=== PATIENT | male | born 1995 | race Caucasian/White ===

== ENCOUNTER 2018-10-10 15:47 | Emergency (ER) | payer BC ==
[2018-10-10] MEDS ORDERED: KETOROLAC TROMETHAMINE INJ/PF 30 MG/1 ML SDV IV ONE (16:38)
--- NOTE | 2018-10-10 16:40 | ER Document Report ---
ED Medical Screen (RME) - General Chief Complaint: Abdominal Pain Stated Complaint: ABDOMINAL PAIN Time Seen by Provider: 10/10/18 16:38 Mode of Arrival: Ambulatory Information source: Patient Notes: 23-year-old male presented to ED for complaint of generalized abdominal pain since 1:00. He states she has not had any nausea vomiting or diarrhea. He states he did have a bowel movement this morning he said that the pain is pretty significant and generalized to the whole abdomen. He has active bowel sounds abdomen is soft it is tender to touch to the generalized area. He states the only medical history as is a fractured ankle and foot foot and he drinks beer 3 times a week. 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 Patient is alert oriented respirations regular and unlabored speaking in full sentences. I have greeted and performed a rapid initial assessment of this patient. A comprehensive ED assessment and evaluation of the patient, analysis of test results and completion of medical decision making process will be conducted by an additional ED providers. Dictation of this chart was performed using voice recognition software; therefo re, there may be some unintended grammatical errors. - Related Data Allergies/Adverse Reactions: shellfish derived Allergy (Verified 10/10/18 15:49) Past Medical History - Social History Chew tobacco use (# tins/day): No Frequency of alcohol use: 2 x week Drug Abuse: None Renal/ Medical History: Denies: Hx Peritoneal Dialysis Past Surgical History: Reports: Hx Oral Surgery Physical Exam - Vital signs Vitals: Temp Pulse Resp BP Pulse Ox 98.2 F 96 16 134/76 H 99 10/10/18 15:52 10/10/18 15:52 10/10/18 15:52 10/10/18 15:52 10/10/18 15:52 Course - Vital Signs Vital signs: Temp Pulse Resp BP Pulse Ox 98.2 F 96 16 134/76 H 99 10/10/18 15:52 10/10/18 15:52 10/10/18 15:52 10/10/18 15:52 10/10/18 15:52
[2018-10-10 17:19] LABS: ABSOLUTE EOSINOPHILS # (AUTO) 0.1 10^3/uL (0.0-0.6); ABSOLUTE LYMPHOCYTES (AUTO) 1.7 10^3/uL (0.5-4.7); ABSOLUTE MONOCYTES (AUTO) 0.5 10^3/uL (0.1-1.4); ABSOLUTE NEUT (AUTO) 5.5 10^3/uL (1.7-8.2); BASOPHILS % (AUTO) 0.4 % (0-2); EOSINOPHILS % (AUTO) 1.3 % (0-6); HEMATOCRIT 43.1 % (37.9-51.0); HEMOGLOBIN 14.6 g/dL (13.5-17.0); LYMPHOCYTES % (AUTO) 21.6 % (13-45); MEAN CORPUSCULAR HEMOGLOBIN 30.2 pg (27.0-33.4); MEAN CORPUSCULAR HGB CONC 33.9 g/dL (32.0-36.0); MEAN CORPUSCULAR VOLUME 89 fl (80-97); MONOCYTES % (AUTO) 6.1 % (3-13); PLATELET COUNT 223 10^3/uL (150-450); RED BLOOD COUNT 4.84 10^6/uL (4.35-5.55); RED CELL DISTRIBUTION WIDTH 13.2 % (11.5-14.0); SEGMENTED NEUTROPHILS % (AUTO) 70.6 % (42-78); TOTAL CELLS COUNTED % (AUTO) 100 %; WHITE BLOOD COUNT 7.7 10^3/uL (4.0-10.5)
[2018-10-10 17:38] LABS: ALANINE AMINOTRANSFERASE 36 U/L (21-72); ALBUMIN 4.9 g/dL (3.5-5.0); ALKALINE PHOSPHATASE 69 U/L (38-126); ANION GAP 5 (5-19); ASPARTATE AMINO TRANSFERASE 28 U/L (17-59); BILIRUBIN,DIRECT 0.2 mg/dL (0.0-0.4); BILIRUBIN,TOTAL 0.7 mg/dL (0.2-1.3); BLOOD UREA NITROGEN 13 mg/dL (7-20); CALCIUM 9.9 mg/dL (8.4-10.2); CARBON DIOXIDE 29 mmol/L (22-30); CHLORIDE 103 mmol/L (98-107); GLUCOSE 83 mg/dL (75-110); LIPASE 31.5 U/L (23-300); POTASSIUM 4.6 mmol/L (3.6-5.0); SODIUM 137.1 mmol/L (137-145); TOTAL PROTEIN 7.8 g/dL (6.3-8.2)
--- NOTE | 2018-10-10 20:03 | ER Document Report ---
ED General - General Chief Complaint: Abdominal Pain Stated Complaint: ABDOMINAL PAIN Time Seen by Provider: 10/10/18 16:38 Mode of Arrival: Ambulatory - [facility] Notes: Patient is a 23-year-old male that presents to the emergency department for chief complaint of abdominal pain. Patient reports acute onset of diffuse abdominal pain this afternoon. He states he was at work but was not doing anything overly exertional. He has had meals regularly today and states he has been drinking Gatorade and water. Patient reports a sharp crampy pain from his sternum to his pubic symphysis. The pain was symmetric bilaterally. He states it was constant and has gradually improved since onset. He did receive Toradol in triage which he states gave him relief. He reports no associated nausea, vomiting or diarrhea. He had a normal bowel movement today and denies history of constipation. Patient denies history of abdominal surgery. He has not had any associated fevers or chills. He did not take any medication prior to arrival for his symptoms. He denies any associated chest pain, shortness of breath, numbness or weakness. Past Medical History: Negative Past Surgical History: Negative Social History: Occasional chew tobacco, occasional alcohol, denies drug use Family History: Reviewed and noncontributory for presenting illness Allergies: Reviewed, see documented allergy list. REVIEW OF SYSTEMS: CONSTITUTIONAL : No fever No chills No diaphoresis No recent illness EENT: No vision changes No congestion No sore throat CARDIOVASCULAR: No chest pain No palpitations RESPIRATORY: No shortness of breath No cough No difficulty breathing GASTROINTESTINAL: abdominal pain No nausea No vomiting No diarrhea GENITOURINARY: No dysuria No hematuria No difficulty urinating MUSCULOSKELETAL: No back pain No leg pain No arm pain SKIN: No rashes No lesions LYMPHATIC: No swollen, enlarged glands. NEUROLOGICAL: No lightheadedness No headache No weakness No paresthesias PSYCHIATRIC: No anxiety No depression PHYSICAL EXAMINATION: Vital signs reviewed, nursing noted reviewed. GENERAL: Well-appearing, well-nourished and in no acute distress. HEAD: Atraumatic, normocephalic. EYES: Eyes appear normal, extraocular movements intact, sclera anicteric, conjunctiva are normal. ENT: nares patent, oropharynx clear without exudates. Moist mucous membranes. NECK: Normal range of motion, supple without lymphadenopathy LUNGS: Breath sounds clear to auscultation bilaterally and equal. No wheezes rales or rhonchi. HEART: Regular rate and rhythm without murmurs ABDOMEN: Soft, mild diffuse abdominal tenderness worse in the epigastric region, normoactive bowel sounds. No rebound, guarding, or rigidity. No masses appreciated. EXTREMITIES: Nontender, good range of motion, no pitting or edema. NEUROLOGICAL: No focal neurological deficits. Moves all extremities spontaneously Motor and sensory grossly intact on exam. PSYCH: Normal mood, normal affect. SKIN: Warm, Dry, normal turgor, no rashes or lesions noted on exposed skin - Related Data Allergies/Adverse Reactions: shellfish derived Allergy (Verified 10/10/18 15:49) Past Medical History - General Information source: Patient - Social History Smoking Status: Never Smoker Chew tobacco use (# tins/day): No Frequency of alcohol use: 2 x week Drug Abuse: None Family History: Reviewed & Not Pertinent Patient has suicidal ideation: No Patient has homicidal ideation: No Renal/ Medical History: Denies: Hx Peritoneal Dialysis Past Surgical History: Reports: Hx Oral Surgery Physical Exam - Vital signs Vitals: Temp Pulse Resp BP Pulse Ox 98.2 F 96 16 134/76 H 99 10/10/18 15:52 10/10/18 15:52 10/10/18 15:52 10/10/18 15:52 10/10/18 15:52 Course - Re-evaluation Re-evalutation: 10/10/18 20:02 Vitals reviewed. Nursing notes reviewed. Patient's lab work is unremarkable. He is not acutely anemic or having any symptoms of GI bleed. His kidney function is normal. He has no severe electrolyte derangements. Patient has mild diffuse abdominal tenderness and abdominal series will be obtained to evaluate for constipation or free air. 10/10/18 21:24 Abdominal series shows no significant findings. Patient has continued to improve while in the emergency room. His abdominal exam is non-peritoneal. At this point I do not feel CT imaging is indicated given his normal vital signs, unremarkable blood work and benign abdominal exam. Patient was encouraged to have reevaluation in 24 hours if his abdominal pain is not resolved. He was counseled on return precautions and verbalized understanding. Patient is stable for discharge. Laboratory 10/10/18 10/10/18 10/10/18 16:57 16:57 19:53 WBC 7.7 RBC 4.84 Hgb 14.6 Hct 43.1 MCV 89 MCH 30.2 MCHC 33.9 RDW 13.2 Plt Count 223 Seg Neutrophils % 70.6 Lymphocytes % 21.6 Monocytes % 6.1 Eosinophils % 1.3 Basophils % 0.4 Absolute Neutrophils 5.5 Absolute Lymphocytes 1.7 Absolute Monocytes 0.5 Absolute Eosinophils 0.1 Absolute Basophils 0.0 Sodium 137.1 Potassium 4.6 Chloride 103 Carbon Dioxide 29 Anion Gap 5 BUN 13 Creatinine 1.11 Est GFR ( Amer) > 60 Est GFR (Non-Af Amer) > 60 Glucose 83 Calcium 9.9 Total Bilirubin 0.7 Direct Bilirubin 0.2 Neonat Total Bilirubin Not Reportable Neonat Direct Bilirubin Not Reportable Neonat Indirect Bili Not Reportable AST 28 ALT 36 Alkaline Phosphatase 69 Total Protein 7.8 Albumin 4.9 Lipase 31.5 Urine Color YELLOW Urine Appearance CLEAR Urine pH 8.0 Ur Specific [place] 1.012 Urine Protein NEGATIVE Urine Glucose (UA) NEGATIVE Urine Ketones NEGATIVE Urine Blood NEGATIVE Urine Nitrite NEGATIVE Urine Bilirubin NEGATIVE Urine Urobilinogen NEGATIVE Ur Leukocyte Esterase NEGATIVE Urine WBC (Auto) 1 Urine RBC (Auto) 0 Squamous Epi Cells Auto <1 Urine Mucus (Auto) RARE Urine Ascorbic Acid NEGATIVE Acute Abdomen Series 10/10/18 19:59 IMPRESSION: No acute plain film abnormality is identified. - Vital Signs Vital signs: Temp Pulse Resp BP Pulse Ox 98.2 F 96 16 134/76 H 99 10/10/18 15:52 10/10/18 15:52 10/10/18 15:52 10/10/18 15:52 10/10/18 15:52 - Laboratory Result Diagrams: 10/10/18 16:57 10/10/18 16:57 Discharge - Discharge Clinical Impression: Abdominal pain Qualifiers: Abdominal location: generalized Qualified Code(s): R10.84 - Generalized abdominal pain Condition: Stable Disposition: HOME, SELF-CARE Instructions: Abdominal Pain ([facility]) Additional Instructions: Please return to the emergency department if you have any worsening, or concern of your symptoms. Please return to the emergency department if you develop chest pain, difficulty breathing, severe abdominal pain, or ongoing vomiting. Please follow-up with your primary care physician in 1-2 days and any other recommended physicians. If prescribed, take all medications as directed. If you have any questions or concerns do not hesitate to return the emergency department for evaluation. If your abdominal pain persists in severity he should be reevaluated in 24 hours. Do not hesitate to return to the emergency room for any new or worsening symptoms Referrals: [facility] [Provider Group] - Follow up tomorrow
[2018-10-10 20:17] LABS: APPEARANCE,URINE CLEAR; BILIRUBIN,URINE NEGATIVE (NEGATIVE); COLOR,URINE YELLOW; GLUCOSE, URINE NEGATIVE (NEGATIVE); KETONES,URINE NEGATIVE (NEGATIVE); LEUKOCYTE ESTERASE,URINE NEGATIVE (NEGATIVE); NITRITE,URINE NEGATIVE (NEGATIVE); PROTEIN,URINE NEGATIVE (NEGATIVE); URINE SPECIFIC GRAVITY 1.012; UROBILINOGEN,URINE NEGATIVE mg/dL (<2.0)
--- NOTE | 2018-10-10 20:43 | RADIOLOGY REPORT (SQ) ---
EXAM DESCRIPTION: XR ABDOMEN SUPINE AND ERECT WITH CHEST (ABD ACUTE SERIES) COMPLETED DATE/TME: 10/10/2018 19:59 CLINICAL HISTORY: 23 years Male ,abdominal pain COMPARISON: None. TECHNIQUE: Frontal view chest x-ray and two views of the abdomen. FINDINGS: The cardiomediastinal silhouette appears unremarkable. No consolidating infiltrates or pleural effusions. No free air is identified beneath the hemidiaphragms. No dilated loops of bowel to suggest obstruction. Small to moderate amount of fecal material in the colon. IMPRESSION: No acute plain film abnormality is identified.
[2018-10-10 21:43] VITALS: BP 119/69
== END 2018-10-10 21:41 | disposition home or self-care (01) ==
LOC: ER 15:47
DX: R10.84 Generalized abdominal pain (principal); Z91.013 Allergy to seafood
CPT/HCPCS: 99284; 36415; 83690; 85025; 80053; 81001; 74022; J1885